=== PATIENT | female | born 1950 | race Two or more races ===

== ENCOUNTER 2020-01-05 06:40 | Day surgery (SDC) | payer OTHER ==
[~2020-01-05 06:40] MED LIST: SIMVASTATIN PO
== END 2020-01-05 17:15 | disposition home or self-care (01) ==
LOC: CIR.AMB 06:40
PROVIDERS: ATTEND Surgery
DX: C50.412 Malignant neoplasm of upper-outer quadrant of left female breast (principal); D24.1 Benign neoplasm of right breast

== ENCOUNTER 2021-09-04 10:46 | Outpatient (CLI) | payer OTHER | END 2021-09-04 10:50 | disposition home or self-care (01) | LOC: SONOGRAMA 10:46 | PROVIDERS: ATTEND Pathology Anatomic Pathology & Clinical Pathology | DX: E04.2 Nontoxic multinodular goiter (principal) ==